=== PATIENT | male | born 1940 | race Caucasian/White ===

== ENCOUNTER 2023-05-06 12:51 | Outpatient (AMB) | payer MEDICARE, SELFPAY ==
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
[2023-05-06 13:35] VITALS: BP 122/68; PULSE 75; RESP 15; O2SAT 99; BMI 27.3
== END 2023-05-06 14:03 | disposition home or self-care (01) ==
PROVIDERS: Visit Provider Psychiatry & Neurology Neurology
DX: F03.90 Unspecified dementia, unspecified severity, without behavioral disturbance, psychotic disturbance, mood disturbance, and anxiety (principal)
CPT/HCPCS: 99204

== ENCOUNTER → 2023-05-06 12:51 | Outpatient (BNVA) | payer MEDICARE, SELFPAY | PROVIDERS: Visit Provider Psychiatry & Neurology Neurology ==

== ENCOUNTER 2023-06-20 14:29 | Outpatient (REF) | payer MEDICARE, SELFPAY ==
--- NOTE | ~2023-06-20 | MR_ITS ---
EXAMINATION: MR BRAIN WITHOUT CONTRAST CLINICAL INFORMATION: Dementia COMPARISON: None. TECHNIQUE: MRI of the brain was obtained using routine sequences without contrast. FINDINGS: No acute infarct. Prior right parietal ami hole with focal protrusion of the meninges into the osseous defect. Linear encephalomalacia/gliosis and hemosiderin staining within the subjacent right parietal lobe extending to the ependymal margin of the posterior body the right lateral ventricle with focal micrometallic susceptibility artifact. A couple foci of hemosiderin staining along the periphery of the right lateral ventricle. No extra-axial fluid collection. Moderate generalized parenchymal volume loss without lobar predilection. Mild cerebellar atrophy. Diffuse thinning of the corpus callosum, most pronounced within the anterior body. Significantly attenuated/perforated anterior aspect of the septum pellucidum. Patchy T2 FLAIR hyperintense foci in the subcortical and periventricular white matter and brainstem, nonspecific but presumably mild chronic microangiopathy. 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 No mass lesion, mass effect, or herniation pattern. Normal intracranial arterial and dural venous sinus flow voids.Lens extractions. Mild ethmoid air cell mucosal disease. No mastoid effusion. Leftward nasal septal deviation with leftward bony spur. Retro-odontoid ligamentous thickening/pannus without mass effect along the cervicomedullary junction and sclerosis of the odontoid process. Partially imaged cervical spondylosis. MR/MR head/brain wo con IMPRESSION: 1. No acute intracranial pathology. 2. Moderate generalized parenchymal volume loss without lobar predilection. Mild cerebellar atrophy. 3. 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
== END 2023-06-20 14:30 | disposition home or self-care (01) ==
LOC: HO.MRI 14:29
PROVIDERS: PCP Family Medicine; Visit Provider Psychiatry & Neurology Neurology
DX: F03.90 Unspecified dementia, unspecified severity, without behavioral disturbance, psychotic disturbance, mood disturbance, and anxiety (principal)
CPT/HCPCS: 70551

== ENCOUNTER 2023-12-31 12:48 | Outpatient (AMB) | payer MEDICARE, SELFPAY ==
--- NOTE | 2023-12-31 12:48 | MHC.OFFVIS ---
Intake Visit Reasons: F/U-forgetfulness/hand shaking [phone] con Intake Note: Pt presents for follow up for forgetfulness via telehealth. Sound Effects Supervisor Required: No Allergies ciprofloxacin [From Cipro] Allergy (Mild, Verified 12/31/23 12:49) Diarrhea Medication List - Last Reconciled 12/31/23 by Loren Medina MD acetaminophen 325 mg PO QID PRN apixaban (Eliquis) 2.5 mg PO BID cetirizine (All Day Allergy (cetirizine)) 10 mg PO DAILY PRN clopidogrel 75 mg PO DAILY CPAP (CPAP Machine/Device) As directed digoxin 125 mcg PO DAILY dulaglutide (Trulicity) 1.5 mg subcut QWEEK famotidine 20 mg PO BID memantine 28 mg PO DAILY metformin 500 mg PO BID metoprolol succinate ER 100 mg PO DAILY mometasone 0.1% 1 appl topical DAILY multivitamin 1 tab PO DAILY rosuvastatin 20 mg PO DAILY sertraline 50 mg PO DAILY terazosin 5 mg PO BEDTIME HPI Comments Details: 83y/o male comes for follow up of dementia Tremors imporved but his cognition is worse. He has short term memory issues, trouble recalling events .His helps with medications. He has trouble with names , has trouble remembering appointments. he is on zoloft for past 1 year. He is independent in all ADLs He is confused with dates. [facility] Medical History GEOVANY on CPAP Dementia Surgical History Hx laparoscopic cholecystectomy History of arthroplasty of left shoulder History of left knee replacement Family History Father No problems noted. Mother No problems noted. Sister Breast CA Daughter No problems noted. Son No problems noted. Social History Household Members: Significant Other and Children Housing: House Alcohol intake: never Patient Tobacco Use Status: Former Tobacco user Results Reviewed Results Reviewed: MRI No acute intracranial pathology. 2. Moderate generalized parenchymal volume loss without lobar predilection. Mild cerebellar atrophy. 3. 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 Assessment & Plan Assessment & Plan (1) Dementia: Comment: ? Alzheimers Code(s): F03.90 - Unspecified dementia, unspecified severity, without behavioral disturbance, psychotic disturbance, mood disturbance, and anxiety Category: Medical (2) GEOVANY on CPAP: Code(s): G47.33 - Obstructive sleep apnea (adult) (pediatric) Category: Medical Plan I will trial him on donepezil 10 mg 1/2 tab qd and then 1 tab qd Continue memantine XR 28mg qd CPAP compliance stressed Medications: New donepezil 1/2 tab qd for 1 month then 1 tab qd orally daily; 30 tabs 6RF Coding Level of Care Code Tele Est Pt Level 4 (62405) Diagnoses Dementia F03.90 GEOVANY on CPAP G47.33
== END 2023-12-31 14:15 | disposition home or self-care (01) ==
LOC: HO.HSMS 12:48
PROVIDERS: PCP Physician Assistant; Visit Provider Psychiatry & Neurology Neurology
DX: F03.90 Unspecified dementia, unspecified severity, without behavioral disturbance, psychotic disturbance, mood disturbance, and anxiety (principal); G47.33 Obstructive sleep apnea (adult) (pediatric)
CPT/HCPCS: 99442

== ENCOUNTER → 2023-12-31 12:48 | Outpatient (BNVA) | payer MEDICARE, OTHER, SELFPAY | PROVIDERS: PCP Physician Assistant; Visit Provider Psychiatry & Neurology Neurology ==